=== PATIENT | female | born 1975 | race Caucasian/White ===

== ENCOUNTER 2020-08-18 13:56 | Emergency (ER) | payer OTHER ==
[~2020-08-18 13:56] MED LIST: BYSTOLIC5 MG PO; CARAFATE1 GM PO; CIPRO500 MG PO; COLACE 100MG C100 MG PO; DULOXETINE HCL60 MG PO; FLAGYL500 MG PO; FLOMAX 0.4 MG0.4 MG PO; FOLIC ACID1 MG PO; HYDROCHLOROTH12.5 MG PO; LEVAQUIN750 MG PO; METHOTREXATE T2.5 MG PO; NEURONTIN 300300 MG PO; NORCO 5-325 TA1 EACH PO; ORENCIA 250 MG250 MG INJ; PHENERGAN 12.12.5 M1 PO; PREDNISONE 5 MG5 MG PO; PROTONIX40 MG PO; SKELAXIN TAB 8800 MG PO; TORADOL 10 MG T10 MG PO; ZOFRAN ODT4 MG PO
[2020-08-18] MEDS ORDERED: BACTRIM DS TAB1 EACH PO (15:10)
[2020-08-18] MEDS ORDERED: DIFLUCAN150 MG PO (15:12)
== END 2020-08-18 15:42 | disposition home or self-care (01) ==
LOC: ER1 13:56
DX: L02.214 Cutaneous abscess of groin (principal); I10 Essential (primary) hypertension; M06.9 Rheumatoid arthritis, unspecified; Z90.710 Acquired absence of both cervix and uterus; Z90.49 Acquired absence of other specified parts of digestive tract; Z86.73 Personal history of transient ischemic attack (TIA), and cerebral infarction without residual deficits; Z88.1 Allergy status to other antibiotic agents; Z88.0 Allergy status to penicillin; Z88.5 Allergy status to narcotic agent
CPT/HCPCS: 10060; 87070; 87205; 99283

== ENCOUNTER 2021-01-22 15:59 | Emergency (ER) | payer SELFPAY ==
[~2021-01-22 15:59] MED LIST changes: +BACTRIM DS TAB1 EACH PO; +DIFLUCAN150 MG PO
[2021-01-22 17:11] LABS: HEMOGLOBIN 14.4 gm/dl (12.3-15.3); RED BLOOD COUNT 4.66 M/UL (4.00-5.10); WHITE BLOOD COUNT 8.5 K/UL (4.5-11.0)
[2021-01-22 17:33] LABS: BUN/CREATININE RATIO 10 (0-10)
[2021-01-22] MEDS ORDERED: ZOFRAN ODT 4 MG4 MG GT (20:20)
[2021-01-22] MEDS ORDERED: HYDROCODONE-AC1 EAC1 PO (20:20)
[2021-01-22] MEDS ORDERED: FLOMAX0.4 MG PO (20:20)
== END 2021-01-22 20:40 | disposition home or self-care (01) ==
LOC: ER1 15:59
PROVIDERS: Family Medicine
DX: N13.2 Hydronephrosis with renal and ureteral calculous obstruction (principal); M06.9 Rheumatoid arthritis, unspecified
CPT/HCPCS: 80053; 81001; 83690; 85025; 96374; 96375; 96376; 99284; J1885; J2270; J2405

== ENCOUNTER 2021-04-17 19:26 | Emergency (ER) | payer SELFPAY ==
[~2021-04-17 19:26] MED LIST changes: +FLOMAX0.4 MG PO; +HYDROCODONE-AC1 EAC1 PO; +ZOFRAN ODT 4 MG4 MG GT
[2021-04-17 19:56] LABS: HEMOGLOBIN 14.2 gm/dl (12.3-15.3); RED BLOOD COUNT 4.57 M/UL (4.00-5.10); WHITE BLOOD COUNT 10.1 K/UL (4.5-11.0)
[2021-04-17 20:25] LABS: BUN/CREATININE RATIO 12 (0-10)
[2021-04-17] MEDS ORDERED: PROVENTIL HFA6.7 GM INH (23:08)
[2021-04-18] MEDS ORDERED: ENDOCET 5-3251 EACH PO (01:05)
[2021-04-18] MEDS ORDERED: ZOFRAN ODT 4 MG4 MG SL (01:05)
== END 2021-04-18 01:30 | disposition home or self-care (01) ==
LOC: ER1 19:26
PROVIDERS: Emergency Medicine; Physician Assistant
DX: N13.2 Hydronephrosis with renal and ureteral calculous obstruction (principal)
CPT/HCPCS: 80053; 81001; 83690; 84703; 85025; 87086; 96374; 96375; 96376; 99284; J1885; J2270; J2405